=== PATIENT | male | born 1975 | race Caucasian/White ===

== ENCOUNTER → 2019-07-29 | Outpatient (CLI) | payer OTHER ==
--- NOTE | 2019-07-29 08:59 | RAD ---
EXAM: CT Abdomen and Pelvis without IV contrast INDICATION: Left-sided abdominal pain and hematuria TECHNIQUE: Multi-detector row CT images were acquired from the lung bases through the abdomen and pelvis without the use of IV contrast. Sagittal and coronal images were acquired from the transaxial data. All CT scans performed at this facility utilize dose optimization techniques as appropriate to the exam, including the following: Automated exposure control and adjustment of the mA and/or KV according to patient size (this includes techniques or standardized protocols for targeted exams where dose is indication/reason for exam). ORAL CONTRAST: None COMPARISON: None FINDINGS: The absence of IV contrast limits evaluation of soft tissue pathology. LOWER CHEST: Unremarkable LIVER: Unremarkable BILIARY SYSTEM: Gallbladder is unremarkable. Bile ducts are not dilated. PANCREAS: Unremarkable SPLEEN: Unremarkable ADRENALS: Unremarkable KIDNEYS & URETERS: Unremarkable BLADDER: Unremarkable REPRODUCTIVE ORGANS: Unremarkable GASTROINTESTINAL: Scattered colonic diverticuli are present, most conspicuously in the descending colon and near the proximal sigmoid colon, inflammatory soft tissue stranding is present surrounding a diverticulum. No findings of bowel obstruction or perforation. There is fibrofatty infiltration of the wall of the distal small bowel and proximal large bowel. The appendix is normal. MESENTERY/PERITONEUM/RETROPERITONEUM: Unremarkable VASCULAR: Unremarkable LYMPH NODES: No adenopathy OSSEOUS & SOFT TISSUES: Partial sacralization of the left L5 transverse process. No acute or aggressive osseous lesions. IMPRESSION: 1. Acute sigmoid diverticulitis without evidence of abscess formation or bowel perforation with free intraperitoneal air. 2. Fibrofatty infiltration of the mucosa of the terminal ileum and right colon could reflect sequelae of prior bowel inflammation or obesity. Electronically signed by: Arlette Herman MD (07/29/2019 8:56 AM) [id number]
== END | disposition home or self-care (01) ==
LOC: PMG 08:20
PROVIDERS: ATTEND Physician Assistant
DX: K57.32 Diverticulitis of large intestine without perforation or abscess without bleeding (principal); K57.30 Diverticulosis of large intestine without perforation or abscess without bleeding
CPT/HCPCS: 74176